=== PATIENT | female | born 1950 | race Caucasian/White ===

== ENCOUNTER 2017-02-26 09:33 | Emergency (ER) | payer BC, MEDICARE ==
--- NOTE | 2017-02-26 09:51 | EDM.PDOC ---
ED HPI GENERAL MEDICAL PROBLEM - General Chief Complaint: Cardiovascular Problem Stated Complaint: BLOOD PRESURE Time Seen by Provider: 02/26/17 09:50 Source of Information: Reports: Patient - History of Present Illness INITIAL COMMENTS - FREE TEXT/NARRATIVE: HISTORY AND PHYSICAL: History of present illness: [] Patient with history of hypertension diabetes on Avastin secondary to brain lesion, she is followed through [facility] as well as Dr. Mono Barahona, she also follows with a local oncology. She checks her blood pressure at home, this morning her blood pressure is 140/80 , on arrival 179/80 with automatid bp cuff and is asymptomatic. patient has been on avastin for 5 rounds of treatment, was her last treatment with this medication. Dr. Suarez at his last visit added losartan, oncology is recently up her metoprolol from 50-100 mg daily, her primary care as recommended only checking her blood pressure every 3 days rather than multiple times daily She is scheduled to follow with Dr. Suarez on Thursday 4 days from now She is also scheduled to followup with [facility] for repeat MRI, multiple head CTs on our electronic file No fever nausea vomiting diarrhea constipation chest pain shortness breath headache dizziness or palpitation no bowel or urine symptoms Review of systems: As per history of present illness and below otherwise all systems reviewed and negative. Past medical history: As per history of present illness and as reviewed below otherwise noncontributory. Surgical history: As per history of present illness and as reviewed below otherwise noncontributory. Social history: No reported history of drug or alcohol abuse. Family history: As per history of present illness and as reviewed below otherwise noncontributory. Physical exam: HEENT: Atraumatic, normocephalic, pupils reactive, negative for conjunctival pallor or scleral icterus, mucous membranes moist, throat clear, neck supple, nontender, trachea midline. Lungs: Clear to auscultation, breath sounds equal bilaterally, chest nontender. Heart: S1S2, regular, negative for clicks, rubs, or JVD. Abdomen: Soft, nondistended, nontender. Negative for masses or hepatosplenomegaly. Negative for costovertebral tenderness. Pelvis: Stable nontender. Genitourinary: Deferred. Rectal: Deferred. Extremities: Atraumatic, negative for cords or calf pain. Neurovascular unremarkable. Neuro: Awake, alert, oriented. Cranial nerves II through XII unremarkable. Cerebellum unremarkable. Motor and sensory unremarkable throughout. Exam nonfocal. Diagnostics: [] Lab and imaging stable on file Therapeutics: [] None no medication adjustment repaet bp with manual is 138/80 on recheck Impression: [] Hypertension uncontrolled Definitive disposition and diagnosis as appropriate pending reevaluation and review of above. - Related Data Allergies Allergy/AdvReac Type Severity Reaction Status Date / Time No Known Allergies Allergy Verified 08/07/16 10:55 Home Meds: Home Meds Acetaminophen/HYDROcodone [Chauvin 325-5 MG] 1 tab PO Q6H PRN #20 tablet 08/07/16 [Rx] DULoxetine [Cymbalta] 40 mg PO DAILY 08/07/16 [History] Metoprolol Succinate [Toprol XL 50mg] 100 mg PO DAILY 08/07/16 [History] Ondansetron [Zofran ODT] 4 mg PO Q4H PRN #20 tab.dis 08/07/16 [Rx] metFORMIN [Glucophage XR] 500 mg PO BID 08/07/16 [History] Bevacizumab [Avastin] 1 injection WEEKLY 02/26/17 [History] Losartan Potassium 100 mg DAILY 02/26/17 [History] Past Medical History Cardiovascular History: Reports: Hypertension Neurological History: Reports: Other (See Below) Other Neuro History: 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 ED EXAM, GENERAL - Physical Exam Exam: See Below Course - Vital Signs Last Recorded V/S: Last Vital Signs Temp 36.2 C 02/26/17 09:40 Pulse 71 02/26/17 09:40 Resp 16 02/26/17 09:40 BP 179/82 H 02/26/17 09:40 Pulse Ox 98 02/26/17 09:40 Departure - Departure Time of Disposition: 10:26 Disposition: Home, Self-Care 01 Condition: good Clinical Impression: Hypertension Forms: ED Department Discharge Additional Instructions: No medication change required today Agree with primary care in that less frequent blood pressure checks at home are appropriate The following information is given to patients seen in the emergency department who are being discharged to home. This information is to outline your options for follow-up care. We provide all patients seen in our emergency department with a follow-up referral. The need for follow-up, as well as the timing and circumstances, are variable depending upon the specifics of your emergency department visit. If you don't have a primary care physician on staff, we will provide you with a referral. We always advise you to contact your personal physician following an emergency department visit to inform them of the circumstance of the visit and for follow-up with them and/or the need for any referrals to a consulting specialist. The emergency department will also refer you to a specialist when appropriate. This referral assures that you have the opportunity for follow-up care with a specialist. All of these measure are taken in an effort to provide you with optimal care, which includes your follow-up. Under all circumstances we always encourage you to contact your private physician who remains a resource for coordinating your care. When calling for follow-up care, please make the office aware that this follow-up is from your recent emergency room visit. If for any reason you are refused follow-up, please contact the [facility] emergency department at and asked to speak to the emergency department charge nurse.
[2017-02-26 10:31] VITALS: BP 138/86
== END 2017-02-26 10:36 | disposition home or self-care (01) ==
LOC: MW.ED 09:33
DX: I10 Essential (primary) hypertension (principal); Z98.890 Other specified postprocedural states; Z79.899 Other long term (current) drug therapy
CPT/HCPCS: 99282

== ENCOUNTER 2019-04-11 19:32 | Emergency (ER) | payer MEDICARE, OTHER ==
--- NOTE | 2019-04-11 19:45 | EDM.PDOC ---
ED HPI GENERAL MEDICAL PROBLEM - General Chief Complaint: Laceration Stated Complaint: PT HAS CUT ON LIP Time Seen by Provider: 04/11/19 19:44 Source of Information: Reports: Patient - History of Present Illness INITIAL COMMENTS - FREE TEXT/NARRATIVE: HISTORY AND PHYSICAL: History of present illness: [ Patient presents with laceration on lower lip no [place] involvement however she fell forward and it appears her bottom teeth appears to her lower lip she has a 3 cm linear laceration on the exterior interior approximately 1.5 cm through and through lesion centrally about 1 cm below the vermilion line No fever nausea vomiting chills sweats lower dentition intact upper are false teeth no damage ] Review of systems: As per history of present illness and below otherwise all systems reviewed and negative. Past medical history: As per history of present illness and as reviewed below otherwise noncontributory. Surgical history: As per history of present illness and as reviewed below otherwise noncontributory. Social history: No reported history of drug or alcohol abuse. Family history: As per history of present illness and as reviewed below otherwise noncontributory. Physical exam: HEENT: Atraumatic, normocephalic, pupils reactive, negative for conjunctival pallor or scleral icterus, mucous membranes moist, throat clear, neck supple, nontender, trachea midline. Lungs: Clear to auscultation, breath sounds equal bilaterally, chest nontender. Heart: S1S2, regular, negative for clicks, rubs, or JVD. Abdomen: Soft, nondistended, nontender. Negative for masses or hepatosplenomegaly. Negative for costovertebral tenderness. Pelvis: Stable nontender. Genitourinary: Deferred. Rectal: Deferred. Extremities: Atraumatic, negative for cords or calf pain. Neurovascular unremarkable. Neuro: Awake, alert, oriented. Cranial nerves II through XII unremarkable. Cerebellum unremarkable. Motor and sensory unremarkable throughout. Exam nonfocal. Diagnostics: [Clinical ] Therapeutics: Td Status up to date within last 5 years per patient Lidocaine Wound cleansed and explored ] 1.5 cm linear internal fight bite lesion #4 5-0 Vicryl sutures interrupted 3 cm linear laceration fight bite lesion external-#3 5-0 interrupted sutures Prolene Augmentin Sutures out 5 days Impression: Right bite lesion Laceration 4.5 cm, linear, simple Definitive disposition and diagnosis as appropriate pending reevaluation and review of above. Lower Lip Pain Score (Numeric/FACES): 2 - Related Data Allergies Allergy/AdvReac Type Severity Reaction Status Date / Time No Known Allergies Allergy Verified 04/11/19 19:48 Home Meds: Home Meds Metoprolol Succinate [Toprol XL 50mg] 100 mg PO DAILY 08/07/16 [History] metFORMIN [Glucophage XR] 500 mg PO BID 08/07/16 [History] Bevacizumab [Avastin] 1 injection WEEKLY 02/26/17 [History] Past Medical History Cardiovascular History: Reports: Hypertension Respiratory History: Reports: None Gastrointestinal History: Reports: None Genitourinary History: Reports: None [place] History: Reports: Other (See Below) Other [place] History: ovarian CA Musculoskeletal History: Reports: None Neurological History: Reports: Other (See Below) Other Neuro History: 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 Psychiatric History: Reports: Depression Endocrine/Metabolic History: Reports: Diabetes, Type II Hematologic History: Reports: None Oncologic (Cancer) History: Reports: Brain, Ovarian - Infectious Disease History Infectious Disease History: Reports: None - Past Surgical History Other Neurological Surgeries/Procedures: BACK SUGERY X5 Social & Family History - Family History Family Medical History: Noncontributory - Caffeine Use Caffeine Use: Reports: None ED ROS GENERAL - Review of Systems Review Of Systems: See Below ED EXAM, SKIN/RASH Exam: See Below Course - Vital Signs Last Recorded V/S: Last Vital Signs Temp 97.8 F 04/11/19 19:49 Pulse 66 04/11/19 19:49 Resp 16 04/11/19 19:49 BP 135/68 04/11/19 19:49 Pulse Ox 98 04/11/19 19:49 - Orders/Labs/Meds Meds: Medications Discontinued Medications Generic Name Dose Route Start Last Admin Trade Name Winter PRN Reason Stop Dose Admin Lidocaine HCl 5 ml 04/11/19 19:45 Xylocaine-Mpf 1% INJECT 04/11/19 19:46 ONETIME ONE Departure - Departure Time of Disposition: 20:33 Disposition: Home, Self-Care 01 Condition: Good Clinical Impression: Laceration - Discharge Information Instructions: Laceration Care, Adult, [id number] Forms: ED Department Discharge Additional Instructions: Medication as prescribed Saltwater swish and spit after each meal Liquid diet 3 days Sutures out 5 days Return if symptoms persist or worsen The following information is given to patients seen in the emergency department who are being discharged to home. This information is to outline your options for follow-up care. We provide all patients seen in our emergency department with a follow-up referral. The need for follow-up, as well as the timing and circumstances, are variable depending upon the specifics of your emergency department visit. If you don't have a primary care physician on staff, we will provide you with a referral. We always advise you to contact your personal physician following an emergency department visit to inform them of the circumstance of the visit and for follow-up with them and/or the need for any referrals to a consulting specialist. The emergency department will also refer you to a specialist when appropriate. This referral assures that you have the opportunity for follow-up care with a specialist. All of these measure are taken in an effort to provide you with optimal care, which includes your follow-up. Under all circumstances we always encourage you to contact your private physician who remains a resource for coordinating your care. When calling for follow-up care, please make the office aware that this follow-up is from your recent emergency room visit. If for any reason you are refused follow-up, please contact the [facility] emergency department at and asked to speak to the emergency department charge nurse.
[2019-04-11 21:03] VITALS: BP 133/62
== END 2019-04-11 20:45 | disposition home or self-care (01) ==
LOC: MW.ED 19:32
DX: S01.511A Laceration without foreign body of lip, initial encounter (principal); E11.9 Type 2 diabetes mellitus without complications; F32.9 Major depressive disorder, single episode, unspecified; I10 Essential (primary) hypertension; Z79.84 Long term (current) use of oral hypoglycemic drugs; Z79.899 Other long term (current) drug therapy; W19.XXXA Unspecified fall, initial encounter; W22.8XXA Striking against or struck by other objects, initial encounter
CPT/HCPCS: 12013; 99283; J2001

== ENCOUNTER 2019-04-17 15:06 | Emergency (ER) | payer MEDICARE, OTHER ==
[2019-04-17 16:03] VITALS: BP 135/78
== END 2019-04-17 15:41 | disposition left against medical advice (07) ==
LOC: MW.ED 15:06
DX: Z53.21 Procedure and treatment not carried out due to patient leaving prior to being seen by health care provider (principal)

== ENCOUNTER 2022-10-03 09:55 | Inpatient (IN) | payer MEDICARE, OTHER ==
[2022-10-03] MEDS ORDERED: Morphine 2 MG/ML SYRINGE IVPUSH ONE (10:35)
[2022-10-03] MEDS ORDERED: Sodium Chloride 0.9% 1,000 ML IV SCH (10:45)
[2022-10-03 11:24] LABS: CARBON DIOXIDE,CO2 27.3 mmol/L (21.0-32.0); POTASSIUM,K 4.7 mmol/L (3.5-5.1)
[2022-10-03] MEDS ORDERED: Lidocaine 5% 700 MG Patch TOP ONE (12:28)
[2022-10-03] MEDS ORDERED: Sodium Chloride 0.9% 500 ML IV SCH (13:45)
[2022-10-03] MEDS ORDERED: Iopamidol 755 MG/ML 500 ML Multipack Bottle IVPUSH ONE (15:50)
[2022-10-03] MEDS ORDERED: cefTRIAXone 1 GM in Sodium Chloride 0.9% 50 ML IV ONE (15:53)
[2022-10-03] MEDS ORDERED: Albuterol/Ipratropium 3.0-0.5 MG/3 ML Neb Soln NEB PRN (17:00)
[2022-10-03] MEDS ORDERED: Morphine 2 MG/ML SYRINGE IVPUSH PRN (17:00)
[2022-10-03] MEDS ORDERED: Polyethylene Glycol 3350 Powder 17 GM Packet PO PRN (17:00)
[2022-10-03] MEDS ORDERED: Ondansetron 4 MG/2 ML SDV IVPUSH PRN (17:00)
[2022-10-03 17:03] LABS: CORONAVIRUS COVID-19 NAA NEGATIVE (NEGATIVE); INFLUENZA A NAA NEGATIVE (NEGATIVE); INFLUENZA B NAA NEGATIVE (NEGATIVE)
[2022-10-03] MEDS ORDERED: Lactated Ringers 1,000 ML IV SCH (17:45)
[2022-10-03] MEDS ORDERED: 50% Dextrose in Water 50 ML Syringe IVPUSH PRN (18:06)
[2022-10-03] MEDS ORDERED: Glucagon,Human Recombinant 1 MG Vial IM PRN (18:06)
[2022-10-03] MEDS: Insulin Aspart 100 Units/ML 3 ML Pen SUBCUT SCH (18:20)
[2022-10-03 18:42] LABS: HEMOGLOBIN A1C 6.4 %
[2022-10-03] MEDS: traZODone 50 MG Tab PO SCH (21:05)
[2022-10-04] MEDS: Insulin Aspart 100 Units/ML 3 ML Pen SUBCUT SCH ×3 (06:48→17:34)
[2022-10-04 06:51] LABS: CARBON DIOXIDE,CO2 26.7 mmol/L (21.0-32.0); POTASSIUM,K 4.4 mmol/L (3.5-5.1)
[2022-10-04] MEDS: Acetaminophen 325 MG Tab PO PRN (08:59)
[2022-10-04] MEDS ORDERED: Non-Formulary Medication 1 Each (Duloxetine 20 MG Cap) PO SCH (09:00)
[2022-10-04] MEDS ORDERED: Ibuprofen 600 MG Tab PO PRN (11:12)
[2022-10-04] MEDS ORDERED: oxyCODONE 5 MG Tab PO ONE (11:15)
[2022-10-04] MEDS: Metoprolol Succinate 50 MG Tab.ER PO SCH (11:35)
[2022-10-04] MEDS: Lidocaine 5% 700 MG Patch TOP PRN (14:22)
[2022-10-04] MEDS: cefTRIAXone 1 GM in Sodium Chloride 0.9% 50 ML IV SCH (16:02)
[2022-10-04] MEDS ORDERED: oxyCODONE 5 MG Tab PO PRN (17:41)
[2022-10-04] MEDS: traZODone 50 MG Tab PO SCH (20:49)
[2022-10-05 06:57] LABS: CARBON DIOXIDE,CO2 24.9 mmol/L (21.0-32.0); POTASSIUM,K 4.1 mmol/L (3.5-5.1)
[2022-10-05] MEDS: Acetaminophen 325 MG Tab PO PRN ×2 (07:28→12:13)
[2022-10-05] MEDS: Insulin Aspart 100 Units/ML 3 ML Pen SUBCUT SCH ×3 (07:32→16:48)
[2022-10-05] MEDS: Metoprolol Succinate 50 MG Tab.ER PO SCH (09:15)
[2022-10-05] MEDS: cefTRIAXone 1 GM in Sodium Chloride 0.9% 50 ML IV SCH (15:03)
[2022-10-05] MEDS: Lidocaine 5% 700 MG Patch TOP PRN (16:31)
[2022-10-05] MEDS: traZODone 50 MG Tab PO SCH (20:10)
[2022-10-05] MEDS ORDERED: Rosuvastatin 10 MG Tab PO SCH (21:00)
[2022-10-06 06:11] LABS: CARBON DIOXIDE,CO2 25.1 mmol/L (21.0-32.0); POTASSIUM,K 4.5 mmol/L (3.5-5.1)
[2022-10-06] MEDS: Insulin Aspart 100 Units/ML 3 ML Pen SUBCUT SCH ×2 (07:57→12:21)
[2022-10-06 08:37] VITALS: BP 174/84
[2022-10-06] MEDS: Metoprolol Succinate 50 MG Tab.ER PO SCH (08:40)
[2022-10-06 08:42] VITALS: PULSE 67
== END 2022-10-06 11:58 | disposition home health service (06) | DRG 563 ==
LOC: MW.ED 09:55 → MW.MS 15:49 → OBSVTOIN 10-05 11:35 → MW.MS 10-05 14:59
PROVIDERS: ADMIT Internal Medicine; ATTEND Internal Medicine
DX: S42.021A Displaced fracture of shaft of right clavicle, initial encounter for closed fracture (principal); I95.89 Other hypotension; N39.0 Urinary tract infection, site not specified; R42 Dizziness and giddiness; W19.XXXA Unspecified fall, initial encounter; I10 Essential (primary) hypertension; E86.0 Dehydration; N28.9 Disorder of kidney and ureter, unspecified; W18.2XXA Fall in (into) shower or empty bathtub, initial encounter; K80.20 Calculus of gallbladder without cholecystitis without obstruction; E04.1 Nontoxic single thyroid nodule; E11.9 Type 2 diabetes mellitus without complications; R29.810 Facial weakness; Z20.822 Contact with and (suspected) exposure to COVID-19; F32.A Depression, unspecified; Z85.43 Personal history of malignant neoplasm of ovary; Y92.009 Unspecified place in unspecified non-institutional (private) residence as the place of occurrence of the external cause; Z79.899 Other long term (current) drug therapy; Z86.19 Personal history of other infectious and parasitic diseases; Z85.841 Personal history of malignant neoplasm of brain
CPT/HCPCS: 0240U; 36415; 71045; 71275; 73030; 80053; 81001; 82947; 83036; 83735; 85025; 85610; 87086; 96361; 96365; 96375; 99285; 96376; A9270-GY; G0378; J0696; J2270; J7030; J7040; J7120; Q9967

== ENCOUNTER 2022-12-11 11:09 | Emergency (ER) | payer MEDICARE, OTHER ==
[2022-12-11 12:04] VITALS: BP 113/42; PULSE 68
[2022-12-11] MEDS ORDERED: Acetaminophen/HYDROcodone 325-5 MG Tab PO ONE (12:11)
== END 2022-12-11 13:33 | disposition home or self-care (01) ==
LOC: MW.ED 11:09
DX: S42.332A Displaced oblique fracture of shaft of humerus, left arm, initial encounter for closed fracture (principal); I10 Essential (primary) hypertension; E11.9 Type 2 diabetes mellitus without complications; Z79.899 Other long term (current) drug therapy; W18.30XA Fall on same level, unspecified, initial encounter; Y92.002 Bathroom of unspecified non-institutional (private) residence as the place of occurrence of the external cause
CPT/HCPCS: 29105; 73030; 73060; 99283; A9270